=== PATIENT | female | born 1980 | race Caucasian/White ===

== ENCOUNTER 2017-12-08 04:18 | Emergency (ER) | payer MEDICAID ==
[~2017-12-08] VITALS: Ht 170.2 cm; Wt 92.5 kg
[2017-12-08 04:20] VITALS: BP 136/82
[2017-12-08 04:45] VITALS: BP 136/82
== END 2017-12-08 04:46 | disposition home or self-care (01) ==
LOC: MED 04:18
DX: R05 Cough (principal); R06.02 Shortness of breath; R07.89 Other chest pain; F17.200 Nicotine dependence, unspecified, uncomplicated
CPT/HCPCS: 99283

== ENCOUNTER 2018-01-23 23:50 | Emergency (ER) | payer MEDICAID ==
[~2018-01-23] VITALS: Ht 170.2 cm; Wt 96.6 kg
[2018-01-23 23:55] VITALS: BP 135/75
--- NOTE | 2018-01-24 | NUR ---
PT WALKED TO BED 5
--- NOTE | 2018-01-24 00:05 | NUR ---
ASSUMED CARE OF PT AT THIS TIME. C/O COUGH/CONGESTION X 1 MONTH. PT IN MILD DISTRESS...PT SPEAKS IN FULL SENTENCES. AAOX4 WITH EVEN AND STEADY GAIT; PATIENT STATES PAIN OF 2/10; VSS; PATIENT POSITIONED FOR COMFORT; HOB ELEVATED; BEDRAILS UP X2; BED DOWN. ER MD MADE AWARE OF PT STATUS. WILL CONTINUE TO MONITOR.
--- NOTE | 2018-01-24 00:30 | NUR ---
ER AT BEDSIDE
[2018-01-24] MEDS ORDERED: ALBUTEROL 0.083% 2.5 MG/3 ML NEBU INH ONE (00:35)
[2018-01-24] MEDS ORDERED: predniSONE 20 MG TAB PO ONE (00:35)
[2018-01-24] MEDS ORDERED: ALBUTEROL SULFATE/IPRATROPIU 3 ML SOL IH ONE (00:35)
--- NOTE | 2018-01-24 01:03 | NUR ---
PO MEDS GIVEN
[2018-01-24 01:16] VITALS: BP 130/69
--- NOTE | 2018-01-24 01:18 | NUR ---
Patient discharged with v/s stable. Written and verbal after care instructions given and explained. Patient alert, oriented and verbalized understanding of instructions. Ambulatory with steady gait. All questions addressed prior to discharge. ID band removed. Patient advised to follow up with PMD. Rx of ALBUTEROL SULATE HHN, PREDNISONE 20MG, ALBUTEROL 90MCG/ 2PUFFS EVERY 4 HOURS given. Patient educated on indication of medication including possible reaction and side effects. Opportunity to ask questions provided and answered.
== END 2018-01-24 01:16 | disposition home or self-care (01) ==
LOC: MED 23:50
DX: J45.909 Unspecified asthma, uncomplicated (principal); F17.200 Nicotine dependence, unspecified, uncomplicated
CPT/HCPCS: 94640; 99283; J7512; J7613; J7620

== ENCOUNTER 2019-12-18 04:50 | Emergency (ER) | payer MEDICAID ==
[~2019-12-18] VITALS: Ht 170.2 cm; Wt 90.7 kg
[2019-12-18 04:54] VITALS: BP 139/79
[2019-12-18] MEDS ORDERED: VANCOMYCIN 1,000 MG in DEXTROSE 5% 250 ML IV ONE (05:05)
[2019-12-18] MEDS ORDERED: NACL 0.9% 1,000 ML IV ONE (05:05)
[2019-12-18] MEDS ORDERED: KETOROLAC 30 MG/ML VIAL IVP ONE (05:05)
[2019-12-18] MEDS ORDERED: VANCOMYCIN 1,000 MG VIAL ONE (05:09)
[2019-12-18 05:23] VITALS: BP 139/79
== END 2019-12-18 05:23 | disposition left against medical advice (07) ==
LOC: MED 04:50
DX: J45.909 Unspecified asthma, uncomplicated (principal); F11.90 Opioid use, unspecified, uncomplicated; Z53.21 Procedure and treatment not carried out due to patient leaving prior to being seen by health care provider
CPT/HCPCS: 99281; J1885; J3370